=== PATIENT | female | born 1980 | race Caucasian/White ===

== ENCOUNTER → 2019-09-29 19:04 | Outpatient (ROUT) | payer BC, SELFPAY ==
[2019-09-29 19:35] LABS: Add Manual Diff / Slide Review NO; Basophils Absolute Auto 100 /uL (0-100); Basophils Percent Auto 0.8 % (0-2); Eosinophils Absolute Auto 100 /uL (0-450); Eosinophils Percent Auto 1.9 % (2-4); Hematocrit 40.4 % (36-46); Hemoglobin 13.6 g/dL (12.0-16.0); Lymphocytes Absolute Auto 2300 /uL (1100-4500); Lymphocytes Percent Auto 30.9 % (25-40); Mean Corpuscular HGB Conc 33.7 % (30-36); Mean Corpuscular Hemoglobin 30.8 PG (26-34); Mean Corpuscular Volume 91.3 fL (80-100); Monocytes Absolute Auto 300 /uL (0-900); Monocytes Percent Auto 4.7 % (3-14); Neutrophils Absolute Auto 4500 /uL (1500-7000); Neutrophils Percent Auto 61.7 % (50-75); Platelet Count 239 X10^3/uL (150-400); Red Blood Cell Count 4.43 X10^6/uL (4.0-5.2); Red Cell Distribution Width 13.5 % (11.6-14.8); White Blood Cell Count 7.4 X10^3/uL (4.5-11.0)
[2019-09-29 19:36] LABS: Alanine Aminotransferase 27 IU/L (<35); Albumin 4.4 g/dL (3.5-5.0); Albumin Globulin Ratio 1.5 (1.0-2.8); Alkaline Phosphatase 63 U/L (38-126); Aspartate Aminotransferase 32 IU/L (14-36); Bilirubin Total 0.3 mg/dL (0.2-1.3); Blood Urea Nitrogen 23 mg/dL (7-17); Calcium 9.6 mg/dL (8.4-10.2); Carbon Dioxide 27 mmol/L (22-32); Chloride 103 mmol/L (98-107); Cholesterol 221 mg/dL (140-199); Estimated Glomerular Filt Rate > 60.0 mL/min (>60); Glucose 92 mg/dL (70-100); HDL Cholesterol 56 mg/dL (40-60); HEMOLYSIS 27 (0-50); LDL Cholesterol Calculated 120 mg/dL (<100); Potassium 4.4 mmol/L (3.4-5.1); Sodium 139 mmol/L (137-145); Total Protein 7.4 g/dL (6.3-8.2); Triglycerides 224 mg/dL (35-150)
[2019-09-29 19:53] LABS: Vitamin D 25 Hydroxy (D3) 24.7 ng/mL (30.0-100.0)
[2019-09-29 20:07] LABS: TSH w/ Reflex to FT4 2.32 uIU/mL (0.47-4.68)
== END ==
PROVIDERS: Family Provider Obstetrics & Gynecology; PCP Obstetrics & Gynecology; Visit Provider Physician Assistant
DX: Z13.21 Encounter for screening for nutritional disorder (principal); Z13.29 Encounter for screening for other suspected endocrine disorder; E78.2 Mixed hyperlipidemia
CPT/HCPCS: 80053; 80061; 82306; 84443; 85025

== ENCOUNTER → 2019-10-02 19:16 | Outpatient (CLI) | payer BC, SELFPAY ==
--- NOTE | 2019-10-02 19:19 | DI.MRI.S_ITS ---
PROCEDURE: MR KNEE RT WO CON INDICATIONS: DERAINGMENT OF MENISCUS TECHNIQUE: Noncontrast sagittal PD fast spin echo and T2 fast spin echo with fat saturation, sagittal 3-D FLASH with fat saturation; coronal T1 spin echo and PD fast spin echo with fat saturation, and axial PD fast spin echo with fat saturation through the knee. COMPARISON: None. FINDINGS: Image quality: Excellent. Menisci: Marked truncation and irregularity involving the body of the medial meniscus. There is abnormal signal extending to the free margin superior and inferior articular surface. There is slight partial extrusion Lateral meniscus intact. Cruciate ligaments: Anterior cruciate ligament appears intact. Posterior cruciate ligament appears intact. Numerous multiloculated appearing presumed periligamentous ganglion cysts adjacent to the posterior aspect of the PCL. Medial structures: The medial collateral ligament appears intact. Semimembranosus tendon appears intact. Visualized portions of the pes anserinus tendons appear normal. No abnormal bursal fluid. Lateral structures: The lateral collateral ligament intact. Biceps femoris tendon appears intact. Popliteus tendon grossly unremarkable. Iliotibial band appears intact. Anterior structures: Quadriceps tendon intact. The lateral patellofemoral ligament appears grossly intact. Mild thickening, and intrasubstance signal changes involving the patellar attachment of the medial patellofemoral ligament, technically age-indeterminate. There is mild patellar tendinopathy. Prepatellar and superficial infrapatellar subcutaneous edema/fluid. Bones and cartilage: No focal marrow contusion or discrete low signal fracture line. Within the medial compartment, diffuse partial thickness femoral and tibial articular cartilage loss Within the lateral compartment, intrasubstance signal change within the weightbearing tibial cartilage. Mild surface fraying of the femoral cartilage without focal defect Within the patellofemoral compartment, diffuse surface fraying, intrasubstance signal change and partial-thickness loss of the cartilage overlying the median patellar ridge and near full-thickness cartilage loss overlying the medial patellar facet. There is diffuse partial thickness loss of the femoral trochlear cartilage. Joint space: No joint effusion. No Coleman's cyst. No specific evidence of intra-articular loose body. IMPRESSION: Severe medial meniscal tear involving the body with slight partial extrusion Multiple multiloculated periligamentous ganglion cyst adjacent to PCL. Mild patellar tendinopathy Mild tricompartmental joint degeneration as above Mild sprain of the medial patellofemoral ligament at the patellar attachment although technically age-indeterminate Dictated by: Eran De Paz M.D. on 10/05/2019 at 9:27 Approved by: Eran De Paz M.D. on 10/05/2019 at 10:04
== END ==
PROVIDERS: Family Provider Obstetrics & Gynecology; PCP Obstetrics & Gynecology; Referring Provider Physician Assistant; Visit Provider Physician Assistant
DX: S83.241A Other tear of medial meniscus, current injury, right knee, initial encounter (principal); S83.8X1A Sprain of other specified parts of right knee, initial encounter; M17.11 Unilateral primary osteoarthritis, right knee; M67.461 Ganglion, right knee
CPT/HCPCS: 73721

== ENCOUNTER → 2019-10-06 19:15 | Outpatient (ROUT) | payer BC, SELFPAY ==
[2019-10-06 20:52] LABS: C-Reactive Protein Quant < 0.5 mg/dL (<1.0); Rheumatoid Factor < 8.6 IU/mL (<12.0)
[2019-10-06 21:01] LABS: Erythrocyte Sedimentation Rate 5 MM/HR (0-20)
[2019-10-09 19:59] LABS: ANCA Screen NEGATIVE (NEGATIVE)
== END ==
PROVIDERS: Family Provider Obstetrics & Gynecology; PCP Obstetrics & Gynecology; Visit Provider Physician Assistant
DX: M13.0 Polyarthritis, unspecified (principal); M79.642 Pain in left hand; M79.641 Pain in right hand
CPT/HCPCS: 85651; 86021; 86140; 86430

== ENCOUNTER 2020-08-10 11:14 | Emergency (ER) | payer BC, SELFPAY ==
[2020-08-10] VITALS (10 sets, daily range): BP systolic 123–142; BP diastolic 70–87; PULSE 62–82; RESP 16; TEMP 37.3; O2SAT 95–98; BMI 37.8
--- NOTE | 2020-08-10 11:36 | ED_ITS ---
HPI - SOB/Dyspnea <JORGE Pal - Last Filed: 08/10/20 14:49> General Chief Complaint: Shortness of Breath/Dyspnea Stated Complaint: chest heaviness/sob/body aches x2 days Time Seen by Provider: 08/10/20 11:20 Source: patient Mode of arrival: Ambulatory Limitations: no limitations History of Present Illness HPI Narrative: The patient is a 40-year-old female former smoker who denies medical history presents with a chief complaint of difficulty breathing, cough and chest heaviness for the past few days. Her is coronavirus and she does live with him. She complains of fevers muscle aches and chills. She states she feels like she got hit by a bus, she is concerned about her chest pain and pressure. She has not taken anything at home to feel better. She does not have a primary care provider. She denies any abdominal pain nausea vomiting or diarrhea. Related Data Previous Rx's Medication Instructions Recorded cephalexin 500 mg PO QID #28 cap 11/29/16 Allergies Allergy/AdvReac Type Severity Reaction Status Date / Time hydrocodone AdvReac Unknown NAUSEA AND Verified 08/10/20 11:24 VOMITING Review of Systems <JORGE Pal - Last Filed: 08/10/20 14:49> Review of Systems Narrative: GENERAL: See HPI HEENT: Denies sinus pain, ear pain, sore throat, difficulty swallowing, dizziness. RESPIRATORY: See HPI CARDIOVASCULAR: See HPI GASTROINTESTINAL: Denies nausea, vomiting, abdominal pain, diarrhea, constipation, melena. : Denies dysuria, frequency, incontinence, hematuria, urinary retention. MUSCULOSKELETAL: denies weakness, joint pain, or bony pain SKIN: Denies rash, skin lesions, or other NEUROLOGIC: Denies weakness, headache, numbness, change in speech, confusion, seizures, incoordination. PSYCHIATRIC: No concerning psychosocial issues. 12 point review of systems is negative except for those stated above Patient History <JORGE Pal - Last Filed: 08/10/20 14:49> Surgical History (Updated 12/10/17 @ 05:36 by Conversion Provider) Status post delivery (03/23/16) Social History Smoking Status: Unknown if ever smoked Smoking Status: Unknown if ever smoked alcohol intake frequency: holidays/special occasions only Substance Use Type: does not use Exam <JORGE Pal - Last Filed: 08/10/20 14:49> Narrative Exam Narrative: GENERAL: This is a well-nourished, well-developed patient, in no acute distress HEAD: Atraumatic. Normocephalic. No temporal or scalp tenderness. EYES: Pupils equal round and reactive. Extraocular motions intact. No scleral icterus. No injection or drainage. ENT: Nose without bleeding, purulent drainage or septal hematoma. Wearing a mask. Airway patent. NECK: Trachea midline. No JVD or lymphadenopathy. Supple, nontender, no meningeal signs. CARDIOVASCULAR: Regular rate and rhythm RESPIRATORY: Clear to auscultation. Breath sounds equal bilaterally. No wheezes, rales, or rhonchi. No cough. No increased respiratory effort. No accessory muscle use. Speaking full sentences GASTROINTESTINAL: Abdomen soft, non-tender, nondistended. No hepato- splenomegaly, or palpable masses. No guarding. EXTREMITIES: No clubbing, cyanosis, or edema. No joint tenderness, effusion, or edema noted. BACK: Nontender without deformity or crepitance. No flank tenderness. NEURO: AOx3. SKIN: No rash or erythema on visible skin Initial Vital Signs Initial Vital Signs: Vital Signs Pulse Oximetry 95 08/10/20 11:21 <Leanne Hand DO - Last Filed: 08/10/20 18:44> Initial Vital Signs Initial Vital Signs: Vital Signs Pulse Oximetry 95 08/10/20 11:21 Scores <JORGE Pal - Last Filed: 08/10/20 14:49> GCS Real coma scale eye opening: Spontaneous [place] coma scale verbal response: Orientated Real coma scale motor response: Obey commands Real coma scale total score: 15 Course <JORGE Pal - Last Filed: 08/10/20 14:49> Orders Ordered: ED Orders 08/10/20 11:23 EKG-12 Lead Stat 08/10/20 11:30 COVID19 Stat 08/10/20 12:00 XR chest 1V Stat 08/10/20 12:15 C-Reactive Protein Quant Stat Complete Blood Count AUTO DIFF Stat Comprehensive Metabolic Panel Stat D Dimer Stat Ferritin Stat Lactate (Lactic Acid) Stat Lactate Dehydrogenase Stat NT-proBNP (BNP-Adult 18+) Stat Procalcitonin Stat Troponin & CK Cardiac Panel Stat Vital Signs Vital signs: Vital Signs - 8 hr 08/10/20 11:21 08/10/20 11:22 08/10/20 11:24 Temperature 99.1 F Pulse Rate 82 62 Respiratory Rate 16 Blood Pressure 142/75 H 142/75 H Pulse Oximetry 95 97 98 08/10/20 11:30 08/10/20 12:00 08/10/20 12:30 Temperature Pulse Rate 78 75 Respiratory Rate Blood Pressure 123/70 128/84 Pulse Oximetry 97 96 08/10/20 13:00 08/10/20 13:30 08/10/20 13:31 Temperature Pulse Rate 69 67 Respiratory Rate Blood Pressure 124/86 126/87 Pulse Oximetry 97 97 08/10/20 14:00 Temperature Pulse Rate 72 Respiratory Rate Blood Pressure Pulse Oximetry 98 <Leanne Hand DO - Last Filed: 08/10/20 18:44> Orders Ordered: ED Orders 08/10/20 11:23 EKG-12 Lead Stat 08/10/20 11:30 COVID19 Stat 08/10/20 12:00 XR chest 1V Stat 08/10/20 12:15 C-Reactive Protein Quant Stat Complete Blood Count AUTO DIFF Stat Comprehensive Metabolic Panel Stat D Dimer Stat Ferritin Stat Lactate (Lactic Acid) Stat Lactate Dehydrogenase Stat NT-proBNP (BNP-Adult 18+) Stat Procalcitonin Stat Troponin & CK Cardiac Panel Stat Vital Signs Vital signs: Vital Signs - 8 hr 08/10/20 11:21 08/10/20 11:22 08/10/20 11:24 Temperature 99.1 F Pulse Rate 82 62 Respiratory Rate 16 Blood Pressure 142/75 H 142/75 H Pulse Oximetry 95 97 98 08/10/20 11:30 08/10/20 12:00 08/10/20 12:30 Temperature Pulse Rate 78 75 Respiratory Rate Blood Pressure 123/70 128/84 Pulse Oximetry 97 96 08/10/20 13:00 08/10/20 13:30 08/10/20 13:31 Temperature Pulse Rate 69 67 Respiratory Rate Blood Pressure 124/86 126/87 Pulse Oximetry 97 97 08/10/20 14:00 Temperature Pulse Rate 72 Respiratory Rate Blood Pressure Pulse Oximetry 98 MDM - SOB/Dyspnea <RED PalBC - Last Filed: 08/10/20 14:49> Lab Data Attestation: I reviewed the patient's lab results. Result diagrams: 08/10/20 12:15 08/10/20 12:15 Labs: Lab Results 08/10/20 08/10/20 08/10/20 Range/Units 11:30 12:15 12:15 WBC (4.5-11.0) X10^3/uL RBC (4.0-5.2) X10^6/uL Hgb (12.0-16.0) g/dL Hct (36-46) % MCV (80-100) fL MCH (26-34) PG MCHC (30-36) % RDW (11.6-14.8) % Plt Count (150-400) X10^3/uL Neut % (Auto) (50-75) % Lymph % (Auto) (25-40) % Forrest % (Auto) (3-14) % Eos % (Auto) (2-4) % Baso % (Auto) (0-2) % Neut # (Auto) (5875-0184) /uL Lymph # (Auto) (0693-8560) /uL Forrest # (Auto) (0-900) /uL Eos # (Auto) (0-450) /uL Baso # (Auto) (0-100) /uL D-Dimer < 200 (<230) ng/mL Sodium (137-145) mmol/L Potassium (3.4-5.1) mmol/L Chloride (98-107) mmol/L Carbon Dioxide (22-32) mmol/L BUN (7-17) mg/dL Creatinine (0.52-1.04) mg/dL Estimated GFR (>60) mL/min BUN/Creatinine Ratio (6-22) Glucose (70-100) mg/dL Lactate (0.7-2.1) mmol/L Calcium (8.4-10.2) mg/dL Ferritin (6-137) ng/mL Total Bilirubin (0.2-1.3) mg/dL AST (14-36) IU/L ALT (<35) IU/L Alkaline Phosphatase (38-126) U/L Lactate Dehydrogenase (313-618) U/L Total Creatine Kinase (30-135) U/L CK-MB (CK-2) CK-MB (CK-2) Rel Index Troponin I (0.01-0.034) ng/mL C-Reactive Protein (<1.0) mg/dL NT-Pro-B Natriuret Pep (<125) pg/mL Total Protein (6.3-8.2) g/dL Albumin (3.5-5.0) g/dL Globulin (1.7-4.1) g/dL Albumin/Globulin Ratio (1.0-2.8) Procalcitonin < 0.05 (<0.5) ng/mL COVID-19 PCR Positive H (Negative) 08/10/20 08/10/20 08/10/20 Range/Units 12:15 12:15 12:15 WBC 3.0 L (4.5-11.0) X10^3/uL RBC 4.67 (4.0-5.2) X10^6/uL Hgb 14.1 (12.0-16.0) g/dL Hct 41.8 (36-46) % MCV 89.7 (80-100) fL MCH 30.3 (26-34) PG MCHC 33.8 (30-36) % RDW 13.3 (11.6-14.8) % Plt Count 183 (150-400) X10^3/uL Neut % (Auto) 48.6 L (50-75) % Lymph % (Auto) 37.3 (25-40) % Forrest % (Auto) 11.2 (3-14) % Eos % (Auto) 2.4 (2-4) % Baso % (Auto) 0.5 (0-2) % Neut # (Auto) 1500 (3664-5834) /uL Lymph # (Auto) 1100 (1753-6633) /uL Forrest # (Auto) 300 (0-900) /uL Eos # (Auto) 100 (0-450) /uL Baso # (Auto) 0 (0-100) /uL D-Dimer (<230) ng/mL Sodium 138 (137-145) mmol/L Potassium 4.5 (3.4-5.1) mmol/L Chloride 104 (98-107) mmol/L Carbon Dioxide 31 (22-32) mmol/L BUN 12 (7-17) mg/dL Creatinine 0.70 (0.52-1.04) mg/dL Estimated GFR > 60.0 (>60) mL/min BUN/Creatinine Ratio 17.1 (6-22) Glucose 95 (70-100) mg/dL Lactate 1.0 (0.7-2.1) mmol/L Calcium 8.8 (8.4-10.2) mg/dL Ferritin 11 (6-137) ng/mL Total Bilirubin 0.2 (0.2-1.3) mg/dL AST 57 H (14-36) IU/L ALT 105 H (<35) IU/L Alkaline Phosphatase 79 (38-126) U/L Lactate Dehydrogenase 462 (313-618) U/L Total Creatine Kinase 87 (30-135) U/L CK-MB (CK-2) TNP CK-MB (CK-2) Rel Index TNP Troponin I < 0.012 (0.01-0.034) ng/mL C-Reactive Protein 0.7 (<1.0) mg/dL NT-Pro-B Natriuret Pep 27 (<125) pg/mL Total Protein 7.2 (6.3-8.2) g/dL Albumin 4.2 (3.5-5.0) g/dL Globulin 3.0 (1.7-4.1) g/dL Albumin/Globulin Ratio 1.4 (1.0-2.8) Procalcitonin (<0.5) ng/mL COVID-19 PCR (Negative) Imaging Data Chest x-ray: Attestation: I personally reviewed and interpreted this imaging study as follows: Radiologist's Impression: [address] [place] [id number] ReportSigned Patient: Marion Eckert KMR#: [id number]: [id number]:[id number]/Sex: 40 / FDate of Service: 08/10/20Loc: EDAccession Number: [id number] Procedure: XR chest 1V Ordering Provider: Elaina Long PROCEDURE: XR CHEST 1V INDICATIONS: flu-like symptoms TECHNIQUE: One view of the chest was acquired. COMPARISON: None. FINDINGS: Surgical changes and devices: None. Lungs and pleura: Lungs are clear. No pleural effusions or pneumothorax. Mediastinum: Mediastinal contours appear normal. Heart size is normal. Bones and chest wall: No suspicious bony lesions. Overlying soft tissues appear unremarkable. IMPRESSION: No acute disease. Dictated by: Eran De Paz M.D. on 08/10/2020 at 12:36 Approved by: Eran De Paz M.D. on 08/10/2020 at 12:36 [facility] Narrative Medical decision making narrative: The patient is a 40-year-old female who presents with a chief complaint of cough fever shortness of breath and chest pain. Her EKG has no acute findings, her initial troponin is negative, will not repeat troponin at this time given that she has been having pain for over 24 hours. She does test positive for coronavirus, which could explain her shortness of breath and chest pain. Her D-dimer is negative, helping rule out pulmonary embolism. She is not hypoxic, keeping accident saturation above 97 in the emergency department throughout her stay. I discussed at length monitoring her home oxygen, starting baby aspirin to help prevent clots, return to emergency department if significant shortness of breath etcetera. Encourage patient to follow up with primary care provider gave her contact information at [facility] human resources director. Work note was given, discussed with patient contacting her recent context to let them know that she tested positive. Patient has no questions or concerns upon discharge and states understanding return precautions as well as follow-up care. <Leanne Hand, DO - Last Filed: 08/10/20 18:44> Lab Data Labs: Lab Results 08/10/20 08/10/20 08/10/20 Range/Units 11:30 12:15 12:15 WBC (4.5-11.0) X10^3/uL RBC (4.0-5.2) X10^6/uL Hgb (12.0-16.0) g/dL Hct (36-46) % MCV (80-100) fL MCH (26-34) PG MCHC (30-36) % RDW (11.6-14.8) % Plt Count (150-400) X10^3/uL Neut % (Auto) (50-75) % Lymph % (Auto) (25-40) % Forrest % (Auto) (3-14) % Eos % (Auto) (2-4) % Baso % (Auto) (0-2) % Neut # (Auto) (5578-6895) /uL Lymph # (Auto) (9107-8885) /uL Forrest # (Auto) (0-900) /uL Eos # (Auto) (0-450) /uL Baso # (Auto) (0-100) /uL D-Dimer < 200 (<230) ng/mL Sodium (137-145) mmol/L Potassium (3.4-5.1) mmol/L Chloride (98-107) mmol/L Carbon Dioxide (22-32) mmol/L BUN (7-17) mg/dL Creatinine (0.52-1.04) mg/dL Estimated GFR (>60) mL/min BUN/Creatinine Ratio (6-22) Glucose (70-100) mg/dL Lactate (0.7-2.1) mmol/L Calcium (8.4-10.2) mg/dL Ferritin (6-137) ng/mL Total Bilirubin (0.2-1.3) mg/dL AST (14-36) IU/L ALT (<35) IU/L Alkaline Phosphatase (38-126) U/L Lactate Dehydrogenase (313-618) U/L Total Creatine Kinase (30-135) U/L CK-MB (CK-2) CK-MB (CK-2) Rel Index Troponin I (0.01-0.034) ng/mL C-Reactive Protein (<1.0) mg/dL NT-Pro-B Natriuret Pep (<125) pg/mL Total Protein (6.3-8.2) g/dL Albumin (3.5-5.0) g/dL Globulin (1.7-4.1) g/dL Albumin/Globulin Ratio (1.0-2.8) Procalcitonin < 0.05 (<0.5) ng/mL COVID-19 PCR Positive H (Negative) 08/10/20 08/10/20 08/10/20 Range/Units 12:15 12:15 12:15 WBC 3.0 L (4.5-11.0) X10^3/uL RBC 4.67 (4.0-5.2) X10^6/uL Hgb 14.1 (12.0-16.0) g/dL Hct 41.8 (36-46) % MCV 89.7 (80-100) fL MCH 30.3 (26-34) PG MCHC 33.8 (30-36) % RDW 13.3 (11.6-14.8) % Plt Count 183 (150-400) X10^3/uL Neut % (Auto) 48.6 L (50-75) % Lymph % (Auto) 37.3 (25-40) % Forrest % (Auto) 11.2 (3-14) % Eos % (Auto) 2.4 (2-4) % Baso % (Auto) 0.5 (0-2) % Neut # (Auto) 1500 (2078-5295) /uL Lymph # (Auto) 1100 (3832-0446) /uL Forrest # (Auto) 300 (0-900) /uL Eos # (Auto) 100 (0-450) /uL Baso # (Auto) 0 (0-100) /uL D-Dimer (<230) ng/mL Sodium 138 (137-145) mmol/L Potassium 4.5 (3.4-5.1) mmol/L Chloride 104 (98-107) mmol/L Carbon Dioxide 31 (22-32) mmol/L BUN 12 (7-17) mg/dL Creatinine 0.70 (0.52-1.04) mg/dL Estimated GFR > 60.0 (>60) mL/min BUN/Creatinine Ratio 17.1 (6-22) Glucose 95 (70-100) mg/dL Lactate 1.0 (0.7-2.1) mmol/L Calcium 8.8 (8.4-10.2) mg/dL Ferritin 11 (6-137) ng/mL Total Bilirubin 0.2 (0.2-1.3) mg/dL AST 57 H (14-36) IU/L ALT 105 H (<35) IU/L Alkaline Phosphatase 79 (38-126) U/L Lactate Dehydrogenase 462 (313-618) U/L Total Creatine Kinase 87 (30-135) U/L CK-MB (CK-2) TNP CK-MB (CK-2) Rel Index TNP Troponin I < 0.012 (0.01-0.034) ng/mL C-Reactive Protein 0.7 (<1.0) mg/dL NT-Pro-B Natriuret Pep 27 (<125) pg/mL Total Protein 7.2 (6.3-8.2) g/dL Albumin 4.2 (3.5-5.0) g/dL Globulin 3.0 (1.7-4.1) g/dL Albumin/Globulin Ratio 1.4 (1.0-2.8) Procalcitonin (<0.5) ng/mL COVID-19 PCR (Negative) Discharge Plan Departure Patient Disposition: Home Clinical Impression: COVID-19 Instructions: DI for COVID-19 (Suspected or Confirmed ), Coronavirus Disease 2019, Can COVID-19 be prevented? Activity Restrictions/Additional Instructions: Thank you for trusting us with your care today As discussed, today you tested positive for coronavirus. Please continue to self isolate. Please inform your recent contacts of the past 2 weeks that you tested positive. Please use [id number] medications as needed and able. Cover your coughs and sneezes. As discussed, please come back to the emergency department for any acute. Please contact us before you come in at [phone], so we can prepare to take excellent care of you. I suggest starting a baby aspirin a day to help prevent blood clots. Also please obtain a home pulse ox off of [employer] or similar site. This way you can monitor your oxygen at home. Please rest and push fluids. I have given you a work note for 2 weeks. I have given you contact information to the [facility] human resources director, who can help you identify primary care provider in the area who accepts her insurance. Prescriptions: No Action cephalexin 500 MG capsule 500 mg PO QID Qty: 28 RF: 0 Referrals: [facility] [Outside] Stand Alone Forms: Work Release Note <Leanne Hand, DO - Last Filed: 08/10/20 18:44> Cosign ED Attending Matilda Attestation: I was immediately available in the department for consultation. Documentation has been reviewed. I agree with assessment and plan.
[2020-08-10 11:45] LABS: COVID19 -Nasal RAPID POSITIVE (Negative)
--- NOTE | 2020-08-10 12:00 | DI.RAD.S_ITS ---
PROCEDURE: XR CHEST 1V INDICATIONS: flu-like symptoms TECHNIQUE: One view of the chest was acquired. COMPARISON: None. FINDINGS: Surgical changes and devices: None. Lungs and pleura: Lungs are clear. No pleural effusions or pneumothorax. Mediastinum: Mediastinal contours appear normal. Heart size is normal. Bones and chest wall: No suspicious bony lesions. Overlying soft tissues appear unremarkable. IMPRESSION: No acute disease. Dictated by: Eran De Paz M.D. on 08/10/2020 at 12:36 Approved by: Eran De Paz M.D. on 08/10/2020 at 12:36
[2020-08-10 12:41] LABS: Add Manual Diff / Slide Review NO; Basophils Absolute Auto 0 /uL (0-100); Basophils Percent Auto 0.5 % (0-2); Eosinophils Absolute Auto 100 /uL (0-450); Eosinophils Percent Auto 2.4 % (2-4); Hematocrit 41.8 % (36-46); Hemoglobin 14.1 g/dL (12.0-16.0); Lymphocytes Absolute Auto 1100 /uL (1100-4500); Lymphocytes Percent Auto 37.3 % (25-40); Mean Corpuscular HGB Conc 33.8 % (30-36); Mean Corpuscular Hemoglobin 30.3 PG (26-34); Mean Corpuscular Volume 89.7 fL (80-100); Monocytes Absolute Auto 300 /uL (0-900); Monocytes Percent Auto 11.2 % (3-14); Neutrophils Absolute Auto 1500 /uL (1500-7000); Neutrophils Percent Auto 48.6 % (50-75); Platelet Count 183 X10^3/uL (150-400); Red Blood Cell Count 4.67 X10^6/uL (4.0-5.2); Red Cell Distribution Width 13.3 % (11.6-14.8)
[2020-08-10 12:57] LABS: D Dimer < 200 ng/mL (<230)
[2020-08-10 13:08] LABS: Alanine Aminotransferase 105 IU/L (<35); Albumin 4.2 g/dL (3.5-5.0); Albumin Globulin Ratio 1.4 (1.0-2.8); Alkaline Phosphatase 79 U/L (38-126); Aspartate Aminotransferase 57 IU/L (14-36); BUN Creatinine Ratio 17.1 (6-22); Bilirubin Total 0.2 mg/dL (0.2-1.3); Blood Urea Nitrogen 12 mg/dL (7-17); C-Reactive Protein Quant 0.7 mg/dL (<1.0); Calcium 8.8 mg/dL (8.4-10.2); Carbon Dioxide 31 mmol/L (22-32); Chloride 104 mmol/L (98-107); Creatine Kinase 87 U/L (30-135); Estimated Glomerular Filt Rate > 60.0 mL/min (>60); Glucose 95 mg/dL (70-100); HEMOLYSIS 16 (0-50); Lactate Dehydrogenase 462 U/L (313-618); Potassium 4.5 mmol/L (3.4-5.1); Sodium 138 mmol/L (137-145); Total Protein 7.2 g/dL (6.3-8.2)
[2020-08-10 13:17] LABS: NT-proBNP (BNP-Adult 18+) 27 pg/mL (<125); Troponin I < 0.012 ng/mL (0.01-0.034)
[2020-08-10 13:20] LABS: Procalcitonin < 0.05 ng/mL (<0.5)
[2020-08-10 13:40] LABS: Ferritin 11 ng/mL (6-137)
== END 2020-08-10 14:18 | disposition home or self-care (01) ==
PROVIDERS: Emergency Provider Nurse Practitioner Family; Family Provider Obstetrics & Gynecology
DX: U07.1 COVID-19 (principal); R06.02 Shortness of breath; R05 Cough; R07.9 Chest pain, unspecified; R51.9 Headache, unspecified
CPT/HCPCS: 36415; 71045; 80053; 82550; 82728; 83605; 83615; 83880; 84145; 84484; 85025; 85379; 86140; 87635; 93005; 99281; 99284

== ENCOUNTER → 2022-06-05 09:33 | Outpatient (CLI) | payer SELFPAY ==
[2022-06-05 11:29] LABS: Influenza A - CEPHEID Flu A NEGATIVE (NEGATIVE); Influenza B - CEPHEID Flu B NEGATIVE (NEGATIVE)
[2022-06-05 11:35] LABS: COVID-19 CEPHEID PCR (VTM/NP) Negative (Negative)
== END ==
PROVIDERS: Family Provider Obstetrics & Gynecology; Visit Provider Student in an Organized Health Care Education/Training Program
DX: J02.9 Acute pharyngitis, unspecified (principal); R50.9 Fever, unspecified
CPT/HCPCS: 0240U; 87070

== ENCOUNTER → 2024-07-23 11:50 | Outpatient (CLI) | payer OTHER, SELFPAY ==
--- NOTE | 2024-07-23 | DI.MG.S_ITS ---
BILATERAL DIGITAL DIAGNOSTIC MAMMOGRAM 3D/2D: 07/23/2024 CLINICAL: Skin lesion. No prior exams were available for comparison. The breasts are almost entirely fatty (category a/<25% glandular tissue). There is a benign lymph node in the left breast. No significant masses, calcifications, or other findings are seen in either breast. IMPRESSION: BENIGN There is no mammographic evidence of malignancy. A 1 year screening mammogram is recommended. Based on the Tyrer Cuzick model (a risk assessment model) the patient's lifetime risk is 5.6% and her 10 year risk is 0.9%. According to the ACR, ACS, and NCCN guidelines, an annual breast MRI exam along with mammogram is recommended if the patient's lifetime risk is 20% or greater. This exam was interpreted at Station ID: [id number]. NOTE: For mammograms, a report in lay terms will be sent to the patient. Approximately 15% of breast malignancies will not be visualized mammographically. In the management of a palpable breast mass, a negative mammogram must not discourage biopsy of a clinically suspicious lesion. Electronically Signed By: Josey freire/william:07/23/2024 12:46:01 letter sent: Normal Exam ACR BI-RADS Category 2: Benign
== END ==
PROVIDERS: Family Provider Obstetrics & Gynecology; PCP Registered Nurse; Referring Provider Registered Nurse; Visit Provider Registered Nurse
DX: C44.501 Unspecified malignant neoplasm of skin of breast (principal); L98.9 Disorder of the skin and subcutaneous tissue, unspecified; R92.313 Mammographic fatty tissue density, bilateral breasts
CPT/HCPCS: 77066; G0279